=== PATIENT | female | born 1960 | race Caucasian/White ===

== ENCOUNTER 2019-10-18 07:30 | Outpatient (CLI) | payer BC, SELFPAY ==
[2019-10-18 08:09] LABS: Alanine Aminotransferase 13 U/L (4-35); Albumin Level 3.9 g/dL (3.5-5.1); Alkaline Phosphatase 59 U/L (38-126); Aspartate Amino Transferase 20 U/L (14-36); Bilirubin,Total 0.6 mg/dL (0.2-1.3); Blood Urea Nitrogen 27 mg/dL (7-17); Calcium 8.6 mg/dL (8.4-10.2); Carbon Dioxide 31 mmol/L (22-30); Chloride 102 mmol/L (98-107); Cholesterol 148 mg/dL (0-200); Estimated Glomerular Filt Rate > 60; Glucose 104 mg/dL (65-105); HDL Direct 47 mg/dL; Potassium 3.1 mmol/L (3.4-5.0); Sodium 137 mmol/L (137-145); Triglycerides 64 mg/dL (<150)
[2019-10-18 08:20] LABS: LDL Cholesterol Direct 81 mg/dL
[2019-10-18 09:07] LABS: Free T4 Free Thyroxine 1.05 ng/mL (0.78-2.19)
== END 2019-10-18 07:31 | disposition home or self-care (01) ==
LOC: ANHLAB 07:33
PROVIDERS: PCP Nurse Practitioner Family; Visit Provider Family Medicine
DX: E87.6 Hypokalemia (principal); E78.2 Mixed hyperlipidemia; I10 Essential (primary) hypertension; M16.12 Unilateral primary osteoarthritis, left hip; Z79.899 Other long term (current) drug therapy
CPT/HCPCS: 36415; 80053; 80061; 82306; 82607; 83735; 84439; 84443

== ENCOUNTER → 2021-01-14 12:47 | Outpatient (CLI) | payer BC, SELFPAY ==
--- NOTE | ~2021-01-14 | MR_ITS ---
EXAMINATION: MR lumbar spine wo con EXAM DATE: 01/14/2021 13:42 INDICATION: Low back pain, left hip pain. TECHNIQUE: Multi-sequential, multiplanar MR images of the lumbar spine were obtained without contrast . Sagittal T1, T2, T2 fat saturation images. Axial T2 weighted images. Comparison is made to prior examination from 11/04/2018. FINDINGS: There is severe disc disease L2-3, moderate to severe at the 3 levels below and moderate at L1-2. There is 3 mm retrolisthesis L2 on L3. The vertebral bodies are otherwise aligned. The conus m edullaris terminates at the L1/2 level and has normal signal intensity and morphology. Mild lumbar l evoscoliosis. Paraspinal soft tissue is unremarkable. Large hemangioma within the T10 vertebral body. Level by level evaluation: T12-L1: Disc does not extend beyond the endplate margin. Facet arthropathy: Mild. Neural foraminal stenosis: No stenosis. Central canal stenosis: No stenosis. L1-L2: There is a mild diffuse disc bulge. Facet arthropathy: Mild to moderate. Neural foraminal stenosis: No stenosis. Central canal stenosis: No stenosis. L2-L3: There is a mild to moderate diffuse disc bulge. Facet arthropathy: Moderate. Neural foraminal stenosis: Mild to moderate right, mild left. Central canal stenosis: Mild to moderate. L3-L4: There is a mild to moderate diffuse disc bulge. Facet arthropathy: Moderate bilateral. Neural foraminal stenosis: Mild to moderate bilateral. Central canal stenosis: Mild. L4-L5: There is a moderate diffuse disc bulge. Facet arthropathy: Moderate to severe left, mild to moderate right. Neural foraminal stenosis: Moderate to severe left, mild to moderate right. Central canal stenosis: Mild to moderate. L5-S1: There is a mild to moderate diffuse disc bulge. Facet arthropathy: Moderate left, mild to moderate right. Neural foraminal stenosis: Moderate to severe left. Mild right Central canal stenosis: Mild. Difficult to appreciate significant interval change compared to prior study. IMPRESSION: 1. L4-5 and L5-S1 moderate to severe bilateral neural foraminal stenosis. 2. Advanced lumbar spondylosis as above. 3. Mild levoscoliosis. Reviewed, dictated and finalized at location G.
== END ==
PROVIDERS: Visit Provider Nurse Practitioner Adult Health
DX: M47.896 Other spondylosis, lumbar region (principal)
CPT/HCPCS: 72148

== ENCOUNTER 2021-07-11 00:18 | Day surgery (SDC) | payer BC, SELFPAY ==
[2021-07-01 13:09] VITALS: BMI 32.5
--- NOTE | 2021-07-08 15:36 | PM.HPGS ---
History of Present Illness History of Present Illness Consent: Risks, benefits, and alternatives have been discussed and questions answered. Patient agrees to proceed with procedure. Chief complaint: family hx of colon ca, neoplasm screening Narrative: Danelle Whittaker is a 60 year old female Referred for colon cancer screening. She has a family history of colon cancer Review of Systems Review of Systems: All systems reviewed & are unremarkable except as noted in HPI and below PMFSH Past Medical History Medical History HTN (hypertension) Hyperlipidemia Obesity Surgical History Surgical History History of total hip arthroplasty bilateral Family History Family History Father Hypertension Family history of malignant neoplasm of skin Mother Hypertension Other Family history of arthritis Family history of malignant neoplasm Social History Social History Smoking status: Never smoker Alcohol intake: current Alcohol use details: glass of wine every few months Substance use: never Substance use type: does not use Living arrangements: with family Spiritual care concerns: No Meds Home Medications and Allergies Home Medications Medication Instructions Recorded Confirmed Type aspirin 81 mg PO DAILY 07/01/21 07/01/21 History atenolol-chlorthalidone 1 tablet PO DAILY 07/01/21 07/01/21 History celecoxib [Celebrex] 200 mg PO DAILY PRN 07/01/21 07/01/21 History potassium chloride 20 meq PO DAILY 07/01/21 07/01/21 History rosuvastatin 10 mg PO DAILY 07/01/21 07/01/21 History Allergies Allergy/AdvReac Type Severity Reaction Status Date / Time levofloxacin Allergy Intermediate Hives Verified 07/11/21 11:55 Penicillins Allergy Intermediate Unknown Verified 07/11/21 11:55 TERAMYCIN Allergy Severe Loss of Uncoded 07/01/21 13:13 Consciousness Exam Resp: Auscultation: clear to auscultation bilaterally Cardio: Rate: regular rate Rhythm: regular rhythm GI: GI Palp: Yes Soft to palpation and No Tenderness to palpation present (GI) Assessment and Plan Assessment and plan (1) Colon cancer screening: Code(s): Z12.11 - Encounter for screening for malignant neoplasm of colon Status: Acute Assessment and Plan: Colonoscopy with possible biopsy or polypectomy or cautery or injection of substances.
[2021-07-11 11:56] VITALS: BP 120/72; PULSE 68; RESP 18; TEMP 36.1; O2SAT 68; BMI 32.2
[2021-07-11] MEDS: LACTATED RINGERS 1,000 ML 150 ML IV CONT (12:09)
--- NOTE | 2021-07-11 12:09 | WPDANESEPPF ---
Anes - Initial Pre Proc Eval Procedure: Operation Date: 07/11/21 13:00 Proposed Procedures p Screening Colonoscopy - Jcarlos Benz MD Date/Time: 07/11/21 12:09 Surgeon: Jcarlos Benz MD Pre Op Diagnosis: family hx of colon ca, neoplasm screening Patient Data Age: 60 Gender: F Height: 1.65 m Weight: 87.9 kg Last Vital Signs Temp 36.1 C L 07/11/21 11:56 Pulse 68 07/11/21 11:56 Resp 18 07/11/21 11:56 BP 120/72 07/11/21 11:56 Pulse Ox 68 L 07/11/21 11:56 Allergies Allergy/AdvReac Type Severity Reaction Status Date / Time levofloxacin Allergy Intermediate Hives Verified 07/11/21 11:55 Penicillins Allergy Intermediate Unknown Verified 07/11/21 11:55 TERAMYCIN Allergy Severe Loss of Uncoded 07/01/21 13:13 Consciousness Home Medications Medication Instructions Recorded Confirmed Type aspirin 81 mg PO DAILY 07/01/21 07/01/21 History atenolol-chlorthalidone 1 tablet PO DAILY 07/01/21 07/01/21 History celecoxib [Celebrex] 200 mg PO DAILY PRN 07/01/21 07/01/21 History potassium chloride 20 meq PO DAILY 07/01/21 07/01/21 History rosuvastatin 10 mg PO DAILY 07/01/21 07/01/21 History Patient hx anesthesia problems: none Family hx anesthesia problems: none Results Review: All pre-operative results and documents have been reviewed as part of the pre-operative evaluation. [facility] Past Medical History Medical History (Updated 07/11/21 @ 12:09 by Rainer Cortez MD) HTN (hypertension) Hyperlipidemia Obesity Surgical History Surgical History (Updated 07/11/21 @ 12:12 by Rainer Cortez MD) History of total hip arthroplasty bilateral Family History Family History Father Hypertension Family history of malignant neoplasm of skin Mother Hypertension Other Family history of arthritis Family history of malignant neoplasm Social History Social History Smoking status: Never smoker Alcohol intake: current Alcohol use details: glass of wine every few months Substance use: never Substance use type: does not use Living arrangements: with family Spiritual care concerns: No Anes - Eval Final PreProcedure Day of Procedure 07/11/21 12:09 Patient weight: obese Heart: regular rate and rhythm Lungs: clear to auscultation Airway: Mallampati scale class II Neurological: alert and oriented Last oral intake: >/= 8 hours ASA classification: II Emergent: no Anesthetic plan: proceed Anesthesia type and monitoring: general GIVS and standard monitoring Results Review: All pre-operative results and documents have been reviewed as part of the pre-operative evaluation. Informed Consent: The patient's anesthetic plan and its attendant risks and benefits were discussed with the patient/family/POA. Questions were solicited and answers provided to the satisfaction of the patient/family/POA.
[2021-07-11 13:12] VITALS: BP 86/46; PULSE 62; RESP 17; O2SAT 100
[2021-07-11 13:22] VITALS: BP 111/51; PULSE 55; RESP 17; O2SAT 100
[2021-07-11 13:32] VITALS: BP 91/64; PULSE 57; RESP 21; O2SAT 100
== END 2021-07-11 13:48 | disposition home or self-care (01) ==
PROVIDERS: PCP Nurse Practitioner Family; Visit Provider Internal Medicine Gastroenterology
PROC: 0DJD8ZZ Inspection of Lower Intestinal Tract, Via Natural or Artificial Opening Endoscopic (ICD-10-PCS; CPT 45378; principal; 2021-07-11 13:00)
DX: Z12.11 Encounter for screening for malignant neoplasm of colon (principal); Z98.0 Intestinal bypass and anastomosis status; K63.3 Ulcer of intestine; Z80.0 Family history of malignant neoplasm of digestive organs; Z79.82 Long term (current) use of aspirin; I10 Essential (primary) hypertension; E78.5 Hyperlipidemia, unspecified; E66.9 Obesity, unspecified; Z68.32 Body mass index [BMI] 32.0-32.9, adult
CPT/HCPCS: 45378; J2001; J2704; J3370; J7120

== ENCOUNTER → 2021-10-10 13:12 | Outpatient (CLI) | payer BC, SELFPAY ==
--- NOTE | ~2021-10-10 | MR_ITS ---
EXAMINATION: MR cervical spine wo con DATE: 10/10/2021 13:49 INDICATION: Neck pain. TECHNIQUE: Magnetic resonance imaging (MRI) of the cervical spine was performed without intravenous c ontrast. Sequences included sagittal T2-weighted FSE, sagittal T2-weighted FS FSE, sagittal T1-weight ed FSE, axial MERGE, and axial T2-weighted FSE. COMPARISON: None FINDINGS: Bone alignment is normal. Vertebral body heights are normal. There is mildly decreased disc height at C4-C5 and moderately decreased disc height at C5-C6 and C6-C7. The spinal cord signal inte nsity is normal. The following disc levels are specifically discussed: C2-C3: The disc does not extend beyond the endplate margin. There is no uncovertebral joint osteoarth ritis. There is moderate bilateral facet joint osteoarthritis. There is no neural foraminal stenosis. There is no central canal stenosis. C3-C4: The disc does not extend beyond the endplate margin. There is no uncovertebral joint osteoarth ritis. There is severe bilateral facet joint osteoarthritis. There is no neural foraminal stenosis. T here is no central canal stenosis. C4-C5: The disc does not extend beyond the endplate margin. There is mild left uncovertebral joint os teoarthritis. There is moderate bilateral facet joint osteoarthritis. There is mild left neural cassy inal stenosis. There is no central canal stenosis. C5-C6: The disc is bulging. There is severe bilateral uncovertebral joint osteoarthritis. There is no facet joint osteoarthritis. There is moderate bilateral neural foraminal stenosis. There is mild [place] tral canal stenosis with ventral indentation of the spinal cord. C6-C7: The disc is bulging. There is severe bilateral uncovertebral joint osteoarthritis. There is mi ld bilateral facet joint osteoarthritis. There is mild bilateral neural foraminal stenosis. There is mild central canal stenosis. C7-T1: There is a right central extrusion. There is moderate right uncovertebral joint osteoarthritis . There is mild right and severe left facet joint osteoarthritis. There is mild bilateral neural fora mamie stenosis. There is no central canal stenosis. IMPRESSION: 1. Moderate cervical spondylosis. Reviewed, dictated and finalized at location B.
== END ==
PROVIDERS: PCP Nurse Practitioner Family; Visit Provider Nurse Practitioner Family
DX: M47.22 Other spondylosis with radiculopathy, cervical region (principal)
CPT/HCPCS: 72141

== ENCOUNTER 2021-12-09 09:59 | Outpatient (CLI) | payer BC, SELFPAY ==
[2021-12-09 11:19] LABS: Toxigenic C. Diff NEGATIVE (NEGATIVE)
[2021-12-15 22:32] LABS: Calprotectin, Stool 6 mcg/g
== END 2021-12-09 10:00 | disposition home or self-care (01) ==
LOC: ANHLAB 10:02
PROVIDERS: PCP Nurse Practitioner Family; Visit Provider Nurse Practitioner
DX: R19.7 Diarrhea, unspecified (principal); R15.9 Full incontinence of feces
CPT/HCPCS: 83993; 87045; 87427; 87493

== ENCOUNTER 2022-01-19 10:11 | Outpatient (CLI) | payer BC, SELFPAY ==
--- NOTE | ~2022-01-19 | CT_ITS ---
EXAMINATION: CT abdomen pelvis w con INDICATION: Right upper quadrant pain TECHNIQUE: Computed tomographic images of the abdomen and pelvis were obtained after the administrati on of 100 cc of Omnipaque 350 intravenous contrast. The dose-length product (DLP) was 877.56 mGy-cm. Automated exposure control and iterative reconstruction technique were employed. COMPARISON: None available FINDINGS: The lung bases are clear. The heart size is normal. There is a small sliding hiatal hernia. There is any millimeters cyst in the right hepatic lobe. There is a 1.5 cm mass of the right hepatic lobe with interrupted peripheral nodular enhancement, consistent with a hemangioma. The spleen, panc reas, gallbladder, and adrenal glands are normal. There is a 7 mm soft tissue attenuation lesion proj ecting from the cortex of the right kidney lower pole. There is a 5 mm cortical based lesion in the l eft kidney upper pole. There is calcified atherosclerosis of the aorta and many of the other arteries . No pathologically enlarged abdominal or pelvic lymph nodes are identified. There is no free intrape ritoneal gas or evidence of bowel obstruction. Changes of bilateral hip arthroplasty are noted. Surgi elza changes are noted in the cecum and right lower quadrant small bowel. There is severe lumbar spond ylosis. IMPRESSION: 1. No CT correlate for the patient's symptoms. 2. Indeterminate kidney lesions. Follow-up CT or MRI without and with contrast is recommended. Reviewed, dictated and finalized at location A.
[2022-01-19 11:09] LABS: Estimated Glomerular Filt Rate > 60
== END 2022-01-19 10:12 | disposition home or self-care (01) ==
PROVIDERS: PCP Nurse Practitioner Family; Visit Provider Nurse Practitioner
DX: R10.11 Right upper quadrant pain (principal); Z80.0 Family history of malignant neoplasm of digestive organs; N28.89 Other specified disorders of kidney and ureter
CPT/HCPCS: 74177; Q9967

== ENCOUNTER → 2022-01-26 10:28 | Outpatient (CLI) | payer BC, SELFPAY ==
--- NOTE | ~2022-01-26 | MR_ITS ---
EXAMINATION: MR abdomen wo/w con DATE: 01/26/2022 11:31 INDICATION: Disorder of kidney and ureter TECHNIQUE: Magnetic resonance imaging (MRI) of the abdomen was performed without and with 19 mL Multi sangita intravenous contrast. Sequences included coronal T2-weighted SS-FSE, coronal and axial FS 2D-F IESTA, axial STIR FSE, axial T2-weighted SS-FSE, axial T2-weighted FS SS-FSE, axial diffusion-weighte d SE, axial dual-echo T1-weighted FSPGR, and axial and coronal T1-weighted LAVA. Postcontrast axial T 1-weighted LAVA images were obtained in a time course. Postcontrast coronal T1-weighted LAVA images w ere obtained. COMPARISON: CT dated 01/19/2022 FINDINGS: Heart size is normal. No pericardial or pleural effusion. 1.5 cm T2 hyperintense hemangioma in the ri ght hepatic lobe which demonstrates peripheral discontiguous puddling of contrast which fills in on d elayed images. Additional 10 mm nonenhancing T2 hyperintense cyst at the caudal tip of the right hepa tic lobe. Gallbladder, pancreas, spleen and bilateral adrenal glands are normal. Bilateral subcentime ter nonenhancing T2 hyperintense renal cysts measuring 7 mm at the upper pole left kidney correspondi ng to one of the lesions on prior CT and 8 mm at the lower pole of the left kidney and 6 mm at the in terpolar region of the right kidney. There is an additional 7 mm nonenhancing lesion at the lower jose cruz e of the right kidney which is difficult to distinguish from the surrounding kidney on the noncontras t images most likely representing a small proteinaceous/hemorrhagic cyst. No bowel obstruction. No pa thologically enlarged abdominal lymphadenopathy. Severe lumbar spondylosis. Metallic magnetic field a rtifact associated with bilateral hip arthroplasties. IMPRESSION: 1. A few subcentimeter nonenhancing bilateral renal cysts which includes the lesions of concern ident ified on prior CT. Reviewed, dictated and finalized at location A. IMPRESSION: 1. A few subcentimeter nonenhancing bilateral renal cysts which includes the le sions of concern identified on prior CT.
== END ==
PROVIDERS: PCP Nurse Practitioner Family; Visit Provider Nurse Practitioner
DX: N28.1 Cyst of kidney, acquired (principal)
CPT/HCPCS: 74183; A9577

== ENCOUNTER 2022-05-31 10:49 | Outpatient (CLI) | payer BC, SELFPAY ==
[2022-05-31 11:31] LABS: Hematocrit 41.3 % (37.0-47.0); Hemoglobin 13.5 g/dL (12.0-15.0); Mean Corpuscular HGB Conc 32.7 g/dl (32-36); Mean Corpuscular Hemoglobin 28.9 pg (26-34); Mean Corpuscular Volume 88.4 fl (80-100); Mean Platelet Volume 11.2 fl (7.4-10.4); Platelet Count Result 284 k/mm3 (150-375); Red Blood Count 4.67 M/mm3 (4.2-5.4); Red Cell Distribution Width 13.7 % (11.5-14.5); White Blood Count 7.6 K/mm3 (4.5-10.0)
[2022-05-31 11:49] LABS: Alanine Aminotransferase 23 U/L (6-35); Alkaline Phosphatase 75 U/L (38-126); Anion Gap 6 mmol/L (8-16); Aspartate Amino Transferase 28 U/L (14-36); Bilirubin,Total 0.8 mg/dL (0.2-1.3); Blood Urea Nitrogen 12 mg/dL (7-17); Carbon Dioxide 34 mmol/L (22-30); Chloride 99 mmol/L (98-107); Estimated Glomerular Filt Rate > 60; Glucose 100 mg/dL (65-110); Potassium 3.2 mmol/L (3.4-5.0); Sodium 139 mmol/L (137-145)
[2022-06-03 22:22] LABS: Vitamin D 1,25 (OH)2 Total 40 pg/mL (18-72); Vitamin D2 1,25 (OH)2 <8 pg/mL; Vitamin D3 1,25 (OH)2 40 pg/mL
== END 2022-05-31 10:50 | disposition home or self-care (01) ==
LOC: ANHLAB 10:51
PROVIDERS: PCP Nurse Practitioner Family; Visit Provider Nurse Practitioner
DX: K21.9 Gastro-esophageal reflux disease without esophagitis (principal); R53.83 Other fatigue; I10 Essential (primary) hypertension; K58.0 Irritable bowel syndrome with diarrhea; R73.03 Prediabetes
CPT/HCPCS: 36415; 80053; 82607; 82652; 84443; 85027

== ENCOUNTER 2022-07-10 00:55 | Day surgery (SDC) | payer BC, SELFPAY ==
[2022-06-29 13:37] VITALS: BMI 32.3
[2022-07-10 09:51] VITALS: BP 105/77; PULSE 60; RESP 20; TEMP 36.2; O2SAT 97
[2022-07-10] MEDS: LACTATED RINGERS 1,000 ML 150 ML IV CONT (10:12)
--- NOTE | 2022-07-10 10:37 | WPDANESEPPF ---
Anes - Initial Pre Proc Eval Procedure: Operation Date: 07/10/22 11:00 Proposed Procedures p Esophagogastroduodenoscopy - Jcarlos Benz MD Date/Time: 07/10/22 10:37 Surgeon: Jcarlos Benz MD Pre Op Diagnosis: dysphagia Patient Data Age: 61 Gender: F Height: 1.68 m Weight: 93.8 kg Last Vital Signs Temp 36.2 C L 07/10/22 09:51 Pulse 60 07/10/22 09:51 Resp 20 07/10/22 09:51 BP 105/77 07/10/22 09:51 Pulse Ox 97 07/10/22 09:51 O2 Del Method Room Air 07/10/22 09:51 Allergies Allergy/AdvReac Type Severity Reaction Status Date / Time levofloxacin Allergy Intermediate Hives Verified 07/10/22 09:51 Penicillins Allergy Intermediate Unknown Verified 07/10/22 09:51 oxytetracycline Allergy Loss of Verified 07/10/22 09:51 [From Terramycin] Consciousness Home Medications Medication Instructions Recorded Confirmed Type aspirin 81 mg capsule 81 mg PO DAILY 07/01/21 06/29/22 History atenolol 50 mg-chlorthalidone 25 1 tablet PO DAILY 07/01/21 06/29/22 History mg tablet potassium chloride 20 mEq 20 meq PO DAILY 07/01/21 06/29/22 History tablet,extended release(part/cryst) rosuvastatin 10 mg tablet 10 mg PO DAILY 07/01/21 06/29/22 History esomeprazole magnesium 40 mg 40 mg PO DAILY #30 caps 05/31/22 06/29/22 Rx capsule,delayed release (Nexium) amitriptyline 25 mg tablet 25 mg PO HS 06/29/22 06/29/22 History Patient hx anesthesia problems: none Family hx anesthesia problems: none Results Review: All pre-operative results and documents have been reviewed as part of the pre-operative evaluation. [facility] Past Medical History Medical History Family history of pancreatic cancer Fatigue Gastroesophageal reflux disease HTN (hypertension) Hyperlipidemia Irritable bowel syndrome with diarrhea Liver hemangioma Obesity Prediabetes Recurrent cold sores RUQ abdominal pain Surgical History Surgical History History of total hip arthroplasty bilateral Family History Family History Father Hypertension Family history of malignant neoplasm of skin Mother Hypertension Other Family history of arthritis Family history of malignant neoplasm Social History Social History Smoking status: Never smoker Alcohol intake: current Alcohol use details: rarely Substance use: never Substance use type: does not use Living arrangements: with family Spiritual care concerns: No Anes - Eval Final PreProcedure Day of Procedure 07/10/22 10:37 Patient weight: obese Heart: regular rate and rhythm Lungs: clear to auscultation Airway: Mallampati scale class II Neurological: alert and oriented Last oral intake: >/= 8 hours ASA classification: II Emergent: no Anesthetic plan: proceed Anesthesia type and monitoring: general GIVS and standard monitoring Results Review: All pre-operative results and documents have been reviewed as part of the pre-operative evaluation. Informed Consent: The patient's anesthetic plan and its attendant risks and benefits were discussed with the patient/family/POA. Questions were solicited and answers provided to the satisfaction of the patient/family/POA.
--- NOTE | 2022-07-10 10:40 | PM.HPGS ---
History of Present Illness History of Present Illness Consent: Risks, benefits, and alternatives have been discussed and questions answered. Patient agrees to proceed with procedure. Chief complaint: dysphagia Narrative: Daenlle Whittaker is a 61 year old female Who has been having increasing heartburn requiring Tums that helped temporarily.? She states she tried Pepcid that did not improve her symptoms and now she has been using Nexium [id number] over the last several days and this has been helping somewhat but still using Tums.? Feels like food gets stuck in pointing near her epigastric region and feels a ?heaviness?.? She has had 2 episodes of vomiting due to this feeling.? She denies any dysphagia mid chest.? She also reports increasing phlegm and not sure if that is related.? Reports increased belching as well.? States when she lays down she will feel some acid bile come up.? Review of Systems Review of Systems: All systems reviewed & are unremarkable except as noted in HPI and below PMFSH Past Medical History Medical History Family history of pancreatic cancer Fatigue Gastroesophageal reflux disease HTN (hypertension) Hyperlipidemia Irritable bowel syndrome with diarrhea Liver hemangioma Obesity Prediabetes Recurrent cold sores RUQ abdominal pain Surgical History Surgical History History of total hip arthroplasty bilateral Family History Family History Father Hypertension Family history of malignant neoplasm of skin Mother Hypertension Other Family history of arthritis Family history of malignant neoplasm Social History Social History Smoking status: Never smoker Alcohol intake: current Alcohol use details: rarely Substance use: never Substance use type: does not use Living arrangements: with family Spiritual care concerns: No Meds Home Medications and Allergies Home Medications Medication Instructions Recorded Confirmed Type aspirin 81 mg capsule 81 mg PO DAILY 07/01/21 06/29/22 History atenolol 50 mg-chlorthalidone 25 1 tablet PO DAILY 07/01/21 06/29/22 History mg tablet potassium chloride 20 mEq 20 meq PO DAILY 07/01/21 06/29/22 History tablet,extended release(part/cryst) rosuvastatin 10 mg tablet 10 mg PO DAILY 07/01/21 06/29/22 History esomeprazole magnesium 40 mg 40 mg PO DAILY #30 caps 05/31/22 06/29/22 Rx capsule,delayed release (Nexium) amitriptyline 25 mg tablet 25 mg PO HS 06/29/22 06/29/22 History Allergies Allergy/AdvReac Type Severity Reaction Status Date / Time levofloxacin Allergy Intermediate Hives Verified 07/10/22 09:51 Penicillins Allergy Intermediate Unknown Verified 07/10/22 09:51 oxytetracycline Allergy Loss of Verified 07/10/22 09:51 [From Terramycin] Consciousness Vital Signs Vital Signs - 24 hr 07/10/22 09:51 Temperature 36.2 C L Pulse Rate 60 Respiratory Rate 20 Blood Pressure 105/77 Pulse Oximetry 97 Oxygen Delivery Room Air Exam Const: General: alert Orientation/consciousness: patient oriented x3 Resp: Auscultation: clear to auscultation bilaterally Cardio: Rhythm: regular rhythm GI: GI Palp: Yes Soft to palpation and No Tenderness to palpation present (GI) Neuro: General: patient oriented x3 Assessment and Plan Assessment and plan (1) Gastroesophageal reflux disease: Code(s): K21.9 - Gastro-esophageal reflux disease without esophagitis Status: Acute Assessment and Plan: EGD with possible biopsy or dilatation or cautery.
[2022-07-10 11:02] VITALS: BP 103/65; PULSE 67; RESP 15; O2SAT 96
[2022-07-10 11:12] VITALS: BP 103/65; PULSE 56; RESP 14; O2SAT 100
[2022-07-10 11:22] VITALS: BP 119/78; PULSE 55; RESP 22; O2SAT 100
== END 2022-07-10 11:35 | disposition home or self-care (01) ==
PROVIDERS: PCP Nurse Practitioner Family; Visit Provider Internal Medicine Gastroenterology
PROC: 0DJ08ZZ Inspection of Upper Intestinal Tract, Via Natural or Artificial Opening Endoscopic (ICD-10-PCS; CPT 43235; principal; 2022-07-10 11:00)
DX: R13.10 Dysphagia, unspecified (principal); K22.2 Esophageal obstruction; K21.00 Gastro-esophageal reflux disease with esophagitis, without bleeding; K44.9 Diaphragmatic hernia without obstruction or gangrene; I10 Essential (primary) hypertension; E78.5 Hyperlipidemia, unspecified; K58.0 Irritable bowel syndrome with diarrhea; D18.03 Hemangioma of intra-abdominal structures; R73.03 Prediabetes; Z96.643 Presence of artificial hip joint, bilateral
CPT/HCPCS: 43249; 43239; 88305; C1726; J2704; J7120

== ENCOUNTER → 2023-03-06 08:48 | Outpatient (CLI) | payer BC, SELFPAY ==
--- NOTE | ~2023-03-06 | MR_ITS ---
EXAMINATION: MR lumbar spine wo con DATE: 03/06/2023 10:16 INDICATION: Lumbar radicular pain TECHNIQUE: Magnetic resonance imaging (MRI) of the lumbar spine was performed without intravenous con trast. Sequences included sagittal T2-weighted FSE, sagittal T2-weighted FS FSE, sagittal T1-weighted FSE, and axial T2-weighted FSE. COMPARISON: 01/14/2021 FINDINGS: 10 degrees lumbar levocurvature. No significant interval change in 2 mm retrolisthesis L1 on L2, 4 mm retrolisthesis L2 on L3 and 2 mm retrolisthesis L5 on S1. Vertebral body heights are normal. Disc he ight loss with associated fibrovascular degenerative endplate changes, severe at L2-L3, moderate to s evere at L4-L5 and L5-S1 and moderate at L1-L2 and L2-L3. Marrow signal is otherwise unremarkable. Th e conus medullaris terminates at L1-L2. There is normal signal in the caudal spinal cord. Paravertebr al soft tissues are unremarkable. The following disc levels are specifically discussed: T12-L1: The disc does not extend beyond the endplate margin. There is moderate right and moderate to severe left facet joint osteoarthritis. There is no neural foraminal stenosis. There is no central ca nal stenosis. L1-L2: Disc is bulging with annular fissure. There is mild to moderate left and moderate right facet joint osteoarthritis. There is mild right and minimal left neural foraminal stenosis. There is mild c entral canal stenosis. L2-L3: Disc is bulging with annular fissure. There is moderate left and moderate to severe right face t joint osteoarthritis. There is mild left and mild to moderate right neural foraminal stenosis. Ther e is mild to moderate central canal stenosis. L3-L4: Disc is bulging with annular fissure and small central disc extrusion with disc material exten ding couple millimeter cephalad to the level of the inferior endplate of L3 There is hypertrophy of t he ligamentum flavum. There is severe bilateral facet joint osteoarthritis. There is mild bilateral n eural foraminal stenosis. There is mild central canal stenosis. L4-L5: Disc is bulging with annular fissure. There is moderate right and severe left facet joint oste oarthritis. There is mild to moderate right and moderate to severe left neural foraminal stenosis. Th ere is mild to moderate central canal stenosis. L5-S1: Disc is bulging with annular fissure. There is mild and moderate right and moderate left facet joint osteoarthritis. There is mild right and moderate to severe left neural foraminal stenosis. The re is mild central canal stenosis. IMPRESSION: 1. Mild lumbar levoscoliosis with minimal progression of severe lumbar spondylosis. Reviewed, dictated and finalized at location A. [employer] IMPRESSION: 1. Mild lumbar levoscoliosis with minimal progression of severe lumbar spondylo sis.
== END ==
PROVIDERS: Visit Provider Nurse Practitioner Family
DX: M41.86 Other forms of scoliosis, lumbar region (principal); M43.06 Spondylolysis, lumbar region
CPT/HCPCS: 72148

== ENCOUNTER 2023-11-01 10:45 | Emergency (ER) | payer BC, SELFPAY ==
--- NOTE | ~2023-11-01 | XR_ITS ---
EXAMINATION: XR knee LT 3V DATE: 11/01/2023 11:33 INDICATION: Left knee pain. TECHNIQUE: 3 views of left knee were obtained. COMPARISON: None. FINDINGS: Bone alignment is normal. No fracture. There is mild tricompartmental osteoarthritis. No kn ee joint effusion. IMPRESSION: 1. Mild left knee osteoarthritis. Reviewed, dictated and finalized at location E.
[2023-11-01 10:54] VITALS: BP 117/75; PULSE 73; RESP 18; TEMP 35.9; O2SAT 100
--- NOTE | 2023-11-01 10:55 | ED.GENADULT ---
HPI - General Adult General Chief complaint: Skin/Abscess/Foreign Body Stated complaint: lt knee/leg pain Time Seen by Provider: 11/01/23 11:03 Source: patient, RN notes reviewed and old records reviewed Mode of arrival: ambulatory Limitations: no limitations History of Present Illness HPI narrative: 63-year-old female presents to the [facility] with left medial lower knee pain. Patient reports that started a couple of days ago. Recently diagnosed with toe cellulitis and is currently on Keflex. Patient reports pain only when she walks. Unable to reproduce with palpation. Relieving factors: rest Exacerbating factors: movement (Walking) Related Data Home Medications Medication Instructions Recorded Confirmed aspirin 81 mg capsule 81 mg PO DAILY 07/01/21 11/01/23 potassium chloride 20 mEq 20 meq PO DAILY 07/01/21 11/01/23 tablet,extended release(part/cryst) rosuvastatin 10 mg tablet 10 mg PO DAILY 07/01/21 11/01/23 tramadol 50 mg tablet 50 mg PO Q8-10H PRN Pain, Moderate 11/01/23 11/01/23 Allergies Allergy/AdvReac Type Severity Reaction Status Date / Time levofloxacin Allergy Intermediate Hives Verified 11/01/23 10:50 Penicillins Allergy Intermediate Unknown Verified 11/01/23 10:50 oxytetracycline Allergy Loss of Verified 11/01/23 10:50 [From Terramycin] Consciousness Review of Systems Review of Systems: All systems reviewed & are unremarkable except as noted in HPI and below Constitutional: Constitutional: Reports no additional constitutional complaints Eyes: Eyes: Reports no additional eye complaints ENT: Reports system reviewed and no additional complaints, except as documented Cardiovascular: Cardiovascular: Reports no additional cardiovascular complaints, Denies chest pain and Denies dyspnea Respiratory: Respiratory: Reports no additional respiratory complaints, Denies chest congestion, Denies cough and Denies dyspnea Gastrointestinal: Gastrointestinal: Reports no additional gastrointestinal complaints, Denies abdominal pain, Denies nausea and Denies vomiting Musculoskeletal: Musculoskeletal: Reports as per HPI Integumentary/Breasts: Skin/Breast: Reports system reviewed and no additional complaints, except as docu Neurologic: Reports system reviewed and no additional complaints, except as documented Psychiatric: Psychiatric: Reports no additional psychiatric complaints Allergic/Immunologic: Allergic/Immunologic: Reports no additional allergic/immunologic complaints PMFSH Past Medical History Medical History Family history of pancreatic cancer Fatigue Gastroesophageal reflux disease HTN (hypertension) Hyperlipidemia Irritable bowel syndrome with diarrhea Liver hemangioma Obesity Prediabetes Recurrent cold sores RUQ abdominal pain Surgical History Surgical History History of total hip arthroplasty bilateral Family History Family History Father Hypertension Family history of malignant neoplasm of skin Mother Hypertension Other Family history of arthritis Family history of malignant neoplasm Social History Social History Smoking status: Never smoker Alcohol intake: current Alcohol use details: rarely Substance use: never Substance use type: does not use Living arrangements: with family Spiritual care concerns: No Comments At the time of my signature, I reviewed and agree with the nursing past medical, surgical, social, and family history. There is no relevant family history pertinent to the patient complaint. Exam Const: General: cooperative, healthy appearing, comfortable, no acute distress, well developed, alert and well nourished Nutritional Appearance: well nourished and obese Orientation/consciousness: patient oriented x3 Limitations:
== END 2023-11-01 11:58 | disposition home or self-care (01) ==
PROVIDERS: Emergency Provider Nurse Practitioner; PCP Registered Nurse
DX: M17.12 Unilateral primary osteoarthritis, left knee (principal); K21.9 Gastro-esophageal reflux disease without esophagitis; I10 Essential (primary) hypertension; E78.5 Hyperlipidemia, unspecified; R73.03 Prediabetes; E66.9 Obesity, unspecified; Z68.33 Body mass index [BMI] 33.0-33.9, adult; Z96.643 Presence of artificial hip joint, bilateral
CPT/HCPCS: 73562; 99213; G0463